=== PATIENT | male | born 1995 | race Caucasian/White ===

== ENCOUNTER 2021-03-04 19:19 | Emergency (ER) | payer OTHER ==
[2021-03-04 19:22] VITALS: RESP 18
--- NOTE | 2021-03-04 19:43 | ED ---
Abdominal Pain HPI - General Chief Complaint: Abdominal Pain Stated Complaint: Abd Pain Time Seen by Provider: 03/04/21 19:30 Source: patient, RN notes reviewed Mode of arrival: ambulatory Limitations: no limitations - History of Present Illness Initial Comments: Patient is a 26-year-old male that presents to the emergency department complaining of bilateral flank pain that sometimes radiates inwards. Hehas been having these on and off pains for approximately last year he has follow-up with his primary care several times. He notes that his last time he was unable to get in with his primary care so went to urgent care and they noted that he had a few nodules on as lungs so he came to the emergency room to get further evaluated. He stated that the pains come on randomly and have no aggravating factors or instances. She states that they come and go with normal dull ache that is constant on his there. He stated there was no alleviating factors or home remedies to help. He was in no apparent distress or pain while sitting up in bed during exam and interview. Patient was soft-spoken well mannered. He denied any chest pain short of breath headache nausea vomiting diarrhea constipation fever fatigue chills. - Related Data Allergies Allergy/AdvReac Type Severity Reaction Status Date / Time No Known Allergies Allergy Verified 03/04/21 19:22 Review of Systems ROS Statement: Those systems with pertinent positive or pertinent negative responses have been documented in the HPI. ROS Other: All systems not noted in ROS Statement are negative. Past Medical History Past Medical History: No Reported History History of Any Multi-Drug Resistant Organisms: None Reported Past Surgical History: No Surgical Hx Reported Past Psychological History: No Psychological Hx Reported Smoking Status: Current every day smoker Past Alcohol Use History: None Reported Past Drug Use History: None Reported General Exam Limitations: no limitations General appearance: alert, in no apparent distress Head exam: Present: atraumatic, normocephalic, normal inspection Eye exam: Present: normal appearance, PERRL, EOMI. Absent: scleral icterus, conjunctival injection, periorbital swelling Neck exam: Present: normal inspection. Absent: tenderness, meningismus, lymphadenopathy Respiratory exam: Present: normal lung sounds bilaterally. Absent: respiratory distress, wheezes, rales, rhonchi, stridor Cardiovascular Exam: Present: regular rate, normal rhythm, normal heart sounds. Absent: systolic murmur, diastolic murmur, rubs, gallop, clicks GI/Abdominal exam: Present: soft, normal bowel sounds. Absent: distended, tenderness, guarding, rebound, rigid Extremities exam: Present: normal inspection, full ROM, normal capillary refill. Absent: tenderness, pedal edema, joint swelling, calf tenderness Neurological exam: Present: alert, oriented X3, CN II-XII intact Psychiatric exam: Present: normal affect, normal mood Skin exam: Present: warm, dry, intact, normal color. Absent: rash Course Vital Signs 03/04/21 19:21 Temperature 97.7 F Pulse Rate 78 Respiratory 18 Rate Blood Pressure 146/88 O2 Sat by Pulse 99 Oximetry Medical Decision Making - Medical Decision Making 26-year-old male with abdominal pain times one year. Labs, CT of the abdomen and pelvis ordered. Computed tomography scan negative for any acute process. Labs unremarkable. Case discussed with Dr. Victor, patient can discharge home with follow-up to primary care and GI specialists. - Lab Data Result diagrams: 03/04/21 20:01 03/04/21 20:01 Lab Results 03/04/21 03/04/21 03/04/21 Range/Units 20:01 20:01 20:01 WBC 5.8 (3.8-10.6) k/uL RBC 5.29 (4.30-5.90) m/uL Hgb 15.9 (13.0-17.5) gm/dL Hct 45.7 (39.0-53.0) % MCV 86.4 (80.0-100.0) fL MCH 30.1 (25.0-35.0) pg MCHC 34.9 (31.0-37.0) g/dL RDW 12.5 (11.5-15.5) % Plt Count 192 (150-450) k/uL MPV 7.4 Neutrophils % 40 % Lymphocytes % 46 % Monocytes % 8 % Eosinophils % 2 % Basophils % 1 % Neutrophils # 2.3 (1.3-7.7) k/uL Lymphocytes # 2.7 (1.0-4.8) k/uL Monocytes # 0.5 (0-1.0) k/uL Eosinophils # 0.1 (0-0.7) k/uL Basophils # 0.1 (0-0.2) k/uL Sodium 140 (137-145) mmol/L Potassium 4.0 (3.5-5.1) mmol/L Chloride 102 (98-107) mmol/L Carbon Dioxide 29 (22-30) mmol/L Anion Gap 9 mmol/L BUN 12 (9-20) mg/dL Creatinine 0.65 L (0.66-1.25) mg/dL Est GFR (CKD-EPI)AfAm >90 (>60 ml/min/1.73 sqM) Est GFR (CKD-EPI)NonAf >90 (>60 ml/min/1.73 sqM) Glucose 81 (74-99) mg/dL Calcium 9.8 (8.4-10.2) mg/dL Total Bilirubin 0.6 (0.2-1.3) mg/dL AST 31 (17-59) U/L ALT 17 (4-49) U/L Alkaline Phosphatase 57 (38-126) U/L Total Protein 8.0 (6.3-8.2) g/dL Albumin 5.1 H (3.5-5.0) g/dL Amylase 60 (30-110) U/L Lipase 36 (23-300) U/L Urine Color Colorless Urine Appearance Clear (Clear) Urine pH 6.5 (5.0-8.0) Ur Specific Agate 1.007 (1.001-1.035) Urine Protein Negative (Negative) Urine Glucose (UA) Negative (Negative) Urine Ketones Negative (Negative) Urine Blood Negative (Negative) Urine Nitrite Negative (Negative) Urine Bilirubin Negative (Negative) Urine Urobilinogen <2.0 (<2.0) mg/dL Ur Leukocyte Esterase Negative (Negative) - Radiology Data Radiology results: report reviewed, image reviewed CT of the abdomen and pelvis: Negative computed tomography scan. No renal stones or obstruction. Disposition Clinical Impression: Abdominal pain Disposition: HOME SELF-CARE Instructions (If sedation given, give patient instructions): Abdominal Pain (ED) Additional Instructions: Please return to the Emergency Department if symptoms worsen or any other concerns. Keep a journal of any aggravating factors for one pain comes on. Follow-up with GI specialist as soon as possible. Continue to drink plenty of fluids, quit smoking for help benefits. Follow-up with industrial controls technician as planned. Is patient prescribed a controlled substance at d/c from ED?: No Referrals: Karel Greenwood MD [Primary Care Provider] - 1-2 days Anand Bradshaw MD [STAFF PHYSICIAN] - 1-2 days
[2021-03-04 20:24] LABS: Basophils # (A) 0.1 k/uL (0-0.2); Basophils % (A) 1 %; Eosinophils # (A) 0.1 k/uL (0-0.7); Eosinophils % (A) 2 %; HCT 45.7 % (39.0-53.0); HGB 15.9 gm/dL (13.0-17.5); Lymphocytes # (A) 2.7 k/uL (1.0-4.8); Lymphocytes % (A) 46 %; MCH 30.1 pg (25.0-35.0); MCHC 34.9 g/dL (31.0-37.0); MCV 86.4 fL (80.0-100.0); Mean Platelet Volume 7.4; Monocytes # (A) 0.5 k/uL (0-1.0); Monocytes % (A) 8 %; Neutrophils # (A) 2.3 k/uL (1.3-7.7); Neutrophils % (A) 40 %; Platelet Count 192 k/uL (150-450); RBC 5.29 m/uL (4.30-5.90); RDW 12.5 % (11.5-15.5); WBC 5.8 k/uL (3.8-10.6)
[2021-03-04 20:26] LABS: Appearance,Urine Clear (Clear); Bilirubin,Urine Negative (Negative); Blood,Urine Negative (Negative); Color,Urine Colorless; Glucose,Urine (UA) Negative (Negative); Ketones,Urine Negative (Negative); Leukocyte Esterase,Urine Negative (Negative); Nitrite,Urine Negative (Negative); PH, Urine 6.5 (5.0-8.0); Protein,Urine Negative (Negative); Specific Gravity,Urine 1.007 (1.001-1.035); Urobilinogen,Urine <2.0 mg/dL (<2.0)
--- NOTE | 2021-03-04 20:39 | CT ---
EXAMINATION TYPE: CT abdomen pelvis w con DATE OF EXAM: 03/04/2021 COMPARISON: None HISTORY: bilateral flank pain CT DLP: 607.8 mGycm Automated exposure control for dose reduction was used. CONTRAST: Performed with IV Contrast, patient injected with 100 mL of Isovue 300. Images obtained from the diaphragm to the floor the pelvis with IV contrast. Lung bases are clear. There is no pleural effusion. Heart size is normal. There is no pericardial eff usion. Liver is intact. The bile ducts are not dilated. Gallbladder is somewhat contracted. There are small multiple calcified splenic granulomata. There is no pancreatic mass. Stomach is intact. There is no adrenal mass. Kidneys show satisfactory contrast opacification. There is no hydronephrosi s. Delayed images show normal renal excretion. There is no retroperitoneal adenopathy. Bladder disten ds smoothly. There is no inguinal hernia. There is no free fluid in the pelvis. There is no mesenteric edema. There is no ascites or free air. There is no bowel obstruction. Appendi x is not definitely seen. There is no sign of thickened appendix. The lumbar vertebra have normal alignment. There is no compression fracture. Posterior elements are i ntact. Bony pelvis is intact. Hip joints appear intact. IMPRESSION: Negative CT scan abdomen and pelvis. No renal stone or obstruction.
[2021-03-04 20:42] LABS: ALT 17 U/L (4-49); AST 31 U/L (17-59); African American GFR (CKD) >90 (>60 ml/min/1.73 sqM); Albumin 5.1 g/dL (3.5-5.0); Alkaline Phosphatase 57 U/L (38-126); Amylase 60 U/L (30-110); Anion Gap 9 mmol/L; Blood Urea Nitrogen 12 mg/dL (9-20); Calcium 9.8 mg/dL (8.4-10.2); Carbon Dioxide 29 mmol/L (22-30); Chloride 102 mmol/L (98-107); Glucose 81 mg/dL (74-99); Lipase 36 U/L (23-300); Non-African American GFR(CKD) >90 (>60 ml/min/1.73 sqM); Sodium 140 mmol/L (137-145); Total Bilirubin 0.6 mg/dL (0.2-1.3)
[2021-03-04 21:26] VITALS: BP 130/84; PULSE 71; TEMP 98
== END 2021-03-04 21:26 | disposition home or self-care (01) ==
LOC: EC 19:19
DX: R10.9 Unspecified abdominal pain (principal); F17.200 Nicotine dependence, unspecified, uncomplicated
CPT/HCPCS: 36415; 80053; 82150; 83690; 85025; 81003; 74177; 99284; Q9967